=== PATIENT | female | born 1965 | race Caucasian/White ===

== ENCOUNTER → 2016-11-11 | Outpatient (CLI) | payer BC ==
[~2016-11-11] MED LIST: ALPRAZOLAM ER1 MG PO; CALCIUM 600 +1 EAC9 PO; CELEBREX 200 M200 M1 PO; COLACE100 MG PO; DESYREL300 MG PO; DIPHENHYDRAMINE25 M3; DIUREX WATER P1 EACH PO; EFFEXOR XR75 MG PO; ENOXAPARIN40 MG/0.1 SUBQ; FISH OIL 1,2001 EAC3 PO; FLONASE 0.05%50 MCG NASAL; GABAPENTIN 100100 MG PO; GELATIN PO; GLUCOSAMINE-CH1 EA40 PO; GNP HEADACHE P1 EACH PO; HYDROCODON-ACE1 EAC7 PO; HYDROXYCHLOROQ200 M1 PO; IBUPROFEN 800800 M1 PO; LASIX 40 MG TAB40 M2 PO; MELATONIN5 M2 PO; ONE-A-DAY WOMENS PO; PCCA GELATIN BAS1 GM PO; POTASSIUM20 PO; PROVERA10 MG PO; SPIRULINA500 MG PO; STOOL SOFTENER240 MG PO; TYLENOL PM; VITAMIN C + RO500 MG PO; VITAMIN E400 UNI7 PO; WATER PILL PO; ZYRTEC 10 MG TA10 M1 PO
== END ==
LOC: RAD 03:45
DX: Z12.31 Encounter for screening mammogram for malignant neoplasm of breast (principal)

== ENCOUNTER → 2016-11-21 | Outpatient (CLI) | payer BC | LOC: HYPER 07:59 | DX: L97.812 Non-pressure chronic ulcer of other part of right lower leg with fat layer exposed (principal); E66.01 Morbid (severe) obesity due to excess calories; M32.9 Systemic lupus erythematosus, unspecified; F17.210 Nicotine dependence, cigarettes, uncomplicated; Z85.828 Personal history of other malignant neoplasm of skin; Z96.641 Presence of right artificial hip joint; Z96.652 Presence of left artificial knee joint; Z72.89 Other problems related to lifestyle ==

== ENCOUNTER → 2017-06-12 | Outpatient (CLI) | payer BC | LOC: ULTRA 09:12 | DX: K82.8 Other specified diseases of gallbladder (principal) ==

== ENCOUNTER → 2017-06-23 | Outpatient (CLI) | payer BC ==
[~2017-06-23] MED LIST changes: +PROBIOTIC1 EAC5 PO; +RESTORIL30 MG PO; +VITAMIN D1000 UNIT PO
== END ==
LOC: NUC 08:05
DX: R10.11 Right upper quadrant pain (principal); R11.0 Nausea; R93.2 Abnormal findings on diagnostic imaging of liver and biliary tract

== ENCOUNTER → 2017-07-08 | Outpatient (CLI) | payer BC | LOC: HYPER 07:03 | DX: I87.2 Venous insufficiency (chronic) (peripheral) (principal); L97.821 Non-pressure chronic ulcer of other part of left lower leg limited to breakdown of skin; M32.9 Systemic lupus erythematosus, unspecified; E66.01 Morbid (severe) obesity due to excess calories; F17.200 Nicotine dependence, unspecified, uncomplicated; Z86.19 Personal history of other infectious and parasitic diseases; Z68.43 Body mass index [BMI] 50.0-59.9, adult; Z85.828 Personal history of other malignant neoplasm of skin; Z96.641 Presence of right artificial hip joint; Z96.652 Presence of left artificial knee joint; Z72.89 Other problems related to lifestyle ==

== ENCOUNTER → 2017-07-15 | Outpatient (CLI) | payer BC ==
[~2017-07-15] VITALS: Ht 170.2 cm; Wt 172.8 kg
--- NOTE | ~2017-07-15 | S ---
[facility] [address] [place] [address] SURGICAL PATH RPT PROCEDURE Name: BRANDON SINGH Room #: REG [facility]#: [id number] Admission: 07/15/17 Date of : 65 Discharge: Report #: [id number] Path Case #: [id number] PATHOLOGY REPORT COLLECTION DATE: 07/15/2017 RECEIVED DATE: 07/15/2017 SUBMITTING PHYS: Dr. Stefan Gutierrez OTHER PHYS: Dr. Shea Jackson SPECIMEN(S) RECEIVED: A.Duodenal bx B.Gastric bx C.Random colon bx * * * * * * * * * * * * FINAL DIAGNOSIS: A. Small bowel mucosa, duodenal, endoscopic biopsy: - Mild active peptic duodenitis (focal fundic-type metaplasia present). - Negative for dysplasia or malignancy. - Negative for villous blunting or increase in intraepithelial lymphocytosis. B. Gastric mucosa, gastric, endoscopic biopsy: - Two fragments showing mild reactive gastropathy. - Negative for intestinal metaplasia or atrophy. - Negative for Helicobacter pylori. C. Large intestine, random colon, endoscopic biopsy: - Nonspecific changes. - Negative for active colitis. - Negative for dysplasia or malignancy. (IUV:pit; 07/16/2017) COMMENT: Examination shows rare apoptotic bodies as well as occasional to rare eosinophils within the surface epithelium. The crypts are present at regular intervals. There is no evidence of lamina propria fibrosis. The lamina propria cellularity is mixed, and comprised of lymphocytes, plasma cells as well as eosinophils. There are no architectural abnormalities, granulomata, viral inclusions, or parasitic organisms present. There is no active cryptitis identified. There is no increase in intraepithelial lymphocytosis or thickening of collagen layer identified. Overall findings are nonspecific, and may be related to bowel preparation or reaction to medication induced drug injury. There is no dysplasia or malignancy present. Clinical correlation is suggested. (IUV:pit; 07/16/2017) [address] [address] SURGICAL PATH RPT PROCEDURE Name: SAMANTHABRANDON Room #: REG [facility] Antoni#: [id number] Admission: 07/15/17 Date of : 65 Discharge: Report #: [id number] Path Case #: [id number] PATHOLOGIST: Angy Beal M.D. REPORT ELECTRONICALLY SIGNED BY: Angy Beal M.D. DATE/TIME: 07/16/2017 12:34 * * * * * * * * * * * * GROSS PATHOLOGY: A. Received in formalin labeled "Brandon Singh, duodenal BX," and additionally labeled on the requisition as "r/o sprue," are 3 segments of garcia soft tissue measuring 1.1 x 0.3 x 0.3 cm in aggregate dimensions and ranging from 0.3 to 0.4 cm in maximum dimension. The specimen is submitted entirely in cassette A1. B. Received in formalin labeled "Brandon Singh, gastric BX," and additionally labeled on the requisition as "r/o gastritis," are 3 segments of garcia soft tissue measuring 0.9 x 0.3 x 0.3 cm in aggregate dimensions and ranging from 0.3 to 0.3 cm in maximum dimension. The specimen is submitted entirely in cassette B1. C. Received in formalin labeled "Brandon Singh, random colon BX," and additionally labeled on the requisition as "r/o microscopic colitis," are 5 segments of garcia soft tissue measuring 0.9 x 0.6 x 0.3 cm in aggregate dimensions and ranging from 0.2 to 0.4 cm in maximum dimension. The specimen is submitted entirely in cassette C1. (TSD; 07/15/2017) CLINICAL HISTORY: Pre-OP DX: Screening, nausea Post -OP DX: Esophagitis, gastritis, diverticulosis INITIAL CPT CODE(S): A; 69891 B; 55458, 82354 C; 55152 Professional services performed by [employer] at [facility] [address], [place] [address] Technical services performed by [employer] at [address] [place] [address], [address], [place] [address]. [facility] [address] [place] [address] PHONE: [phone] DIRECTOR: Suman Love M.D. * * * END OF REPORT * * *
--- NOTE | ~2017-07-15 | P ---
[facility] [address] [address] PROCEDURE REPORT Name: BRANDON SINGH Room #: REG [facility]#: [id number] Admission: 07/15/17 Attend Phys: Stefan Bateman Discharge: Date of : 65 Report #: [id number] THIS REPORT FOR: //name// CC: Stefan Jackson DATE OF SERVICE: 07/15/2017 PROCEDURE PERFORMED: Colonoscopy with biopsies. HISTORY OF PRESENT ILLNESS: This is a 51-year-old female who presents today for screening colonoscopy. No previous history of colonoscopy. She does have a family history of colon cancer in a grandfather. DESCRIPTION OF PROCEDURE: The risks and benefits of the procedure were explained to the patient, those risks including but not limited to bleeding, perforation, the risk of sedation. She understood these risks and gave informed consent. Sedation was given using propofol per anesthesia. Next, a digital rectal exam was initially performed, which was normal. Next, using a standard Fujinon colonoscope, the scope was placed in the patient's anus and advanced under direct vision to the cecum. The overall prep was excellent. The cecum and ileocecal valve were normal in appearance. Ascending, transverse, descending colon were normal. Multiple diverticula were noted in the sigmoid colon, no evidence of inflammation. The patient did report history of loose stools at times; therefore, biopsies were obtained to rule out microscopic colitis. The rectal mucosa was normal. On retroflexion, no abnormalities were noted. The scope was then withdrawn and the procedure terminated. The patient tolerated the procedure well. IMPRESSION: 1. Sigmoid diverticulosis. 2. Otherwise, normal colonoscopy. RECOMMENDATIONS: 1. Await biopsy results. 2. Repeat colonoscopy in 5 years due to family history. Thank you for allowing me to participate in her care. <ELECTRONICALLY SIGNED> By: Stefan Gutierrez MD 07/15/17 1005 0901 0936 Stefan Gutierrez MD /nt
--- NOTE | ~2017-07-15 | P ---
[facility] [address] [address] [place] [address] PROCEDURE REPORT Name: BRANDON SINGH Room #: REG [facility]#: [id number] Admission: 07/15/17 Attend Phys: Stefan Bateman Discharge: Date of : 65 Report #: [id number] THIS REPORT FOR: //name// CC: Stefan Jakcson MD DATE OF SERVICE: 07/15/2017 PROCEDURE PERFORMED: Upper endoscopy with biopsies. HISTORY OF PRESENT ILLNESS: The patient is a 51-year-old female with a history of intermittent nausea. She underwent an ultrasound and PIPIDA, they were apparently negative. She also presents today for a screening colonoscopy. She does take ibuprofen on a regular basis. She has a history of lupus, plan is for EGD and colonoscopy today. PROCEDURE: The risks and benefits of the procedure were explained to the patient, those risks including, but not limited to bleeding, perforation, and the risk of sedation. She understood these risks and gave informed consent. Sedation was given using propofol per anesthesia. Next, using a standard [employer] upper endoscope, the scope was placed in the patient's mouth and advanced under direct vision through the esophagus, stomach and into the second portion of the duodenum. The upper mid esophagus was normal in appearance. In the distal esophagus, grade A erosive esophagitis was noted. In the stomach, there was a mild diffuse gastritis in the antrum. Several erosions were noted in this area. On retroflexion, several linear ulcerations were noted, small. No active bleeding. Biopsies were obtained to rule out H. pylori. The pylorus was normal and patent. The duodenal bulb, first and second portion were all normal. Biopsies were obtained to rule out the possibility of celiac sprue. The scope was then withdrawn and the procedure terminated. The patient tolerated the procedure well. IMPRESSION: 1. Grade A erosive esophagitis. 2. Gastritis with several gastric erosions and a few small linear ulcerations. 3. Otherwise, normal upper endoscopy. RECOMMENDATIONS: 1. Await biopsy results. 2. Recommend daily PPI. [facility] [address] [place] [address] PROCEDURE REPORT Name: BRANDON SINGH Room #: REG VITAL[facility] Corrales#: [id number] Admission: 07/15/17 Attend Phys: Stefan Bateman Discharge: Date of : 65 Report #: [id number] Thank you for allowing me to participate in her care. <ELECTRONICALLY SIGNED> By: Stefan Gutierrez MD 07/17/17 0812 09 1009 Stefan Gutierrez MD /nt
== END | disposition home or self-care (01) ==
LOC: GI 07:31
DX: Z12.11 Encounter for screening for malignant neoplasm of colon (principal); K29.80 Duodenitis without bleeding; K57.30 Diverticulosis of large intestine without perforation or abscess without bleeding; K22.10 Ulcer of esophagus without bleeding; F32.89 Other specified depressive episodes; F41.8 Other specified anxiety disorders; F17.210 Nicotine dependence, cigarettes, uncomplicated; Z80.0 Family history of malignant neoplasm of digestive organs; Z85.828 Personal history of other malignant neoplasm of skin; Z98.890 Other specified postprocedural states; Z96.641 Presence of right artificial hip joint; Z96.652 Presence of left artificial knee joint; Z88.1 Allergy status to other antibiotic agents; Z91.040 Latex allergy status
CPT/HCPCS: 62110; 62900

== ENCOUNTER → 2017-07-27 | Outpatient (CLI) | payer BC | LOC: HYPER 06:45 | DX: I87.2 Venous insufficiency (chronic) (peripheral) (principal); L97.821 Non-pressure chronic ulcer of other part of left lower leg limited to breakdown of skin; M32.9 Systemic lupus erythematosus, unspecified; E66.01 Morbid (severe) obesity due to excess calories; F17.200 Nicotine dependence, unspecified, uncomplicated; Z86.19 Personal history of other infectious and parasitic diseases; Z68.43 Body mass index [BMI] 50.0-59.9, adult; Z85.828 Personal history of other malignant neoplasm of skin; Z96.641 Presence of right artificial hip joint; Z96.652 Presence of left artificial knee joint; Z72.89 Other problems related to lifestyle ==

== ENCOUNTER → 2017-11-11 | Outpatient (CLI) | payer BC ==
[~2017-11-11] MED LIST changes: +ANTRONEX PO; +ASPIR 8181 MG PO; +AZATHIOPRINE50 MG PO; +CARDIZEM CD120 MG PO; +CLOBETASOL PROP50 G1 TOP; +FISH OIL 1,2001 EAC4 PO; +GLUCOSAMINE HC500 MG PO; +IBU800 MG PO; +IRON325 PO; +NASACORT10.8 ML NASAL; +OMEPRAZOLE 20 M20 M1 PO; +PRADAXA150 MG PO; +PROBIOTIC1 EAC1 PO; +VITAMIN E400 UNIT PO; +ZYRTEC10 M5 PO
== END ==
LOC: RAD 01:42
DX: Z12.31 Encounter for screening mammogram for malignant neoplasm of breast (principal)

== ENCOUNTER 2017-11-22 13:36 | Inpatient (IN) | payer BC ==
[~2017-11-22] VITALS: Ht 170.2 cm; Wt 170.1 kg
--- NOTE | ~2017-11-22 | 2DMMODE ---
[facility] [place] [address] 2 D/M-MODE ECHOCARDIOGRAM Name: BRANDON SINGH Room #: 210-P [facility] IN .R.#: [id number] Admission: 11/22/17 Attend Phys: Miquel Simmons, Discharge: Date of : 65 Date of Service: 11/23/17 1002 Report #: [id number] THIS REPORT FOR: //name// APPROVED REPORT Study performed: 11/23/2017 08:55:46 EXAM: Comprehensive 2D, Doppler, and color-flow Echocardiogram Patient Location: Bedside Room #: 210 Status: routine BSA: 2.67 HR: 92 bpm BP: 147/65 mmHg Rhythm: Atrial Fibrillation Other Information Study Quality: Fair Technically limited study due to morbid obesity. Indications Afib with RVR. Echo Enhancing Agent Indication: Endocardial border delineation Agent(s) / Amount(s) Used: Optison 4 cc 2D Dimensions LVEF(%): 55.18 (>50%) IVSd: 12.11 (7-11mm) LVOT Diam: 21.81 (18-24mm) LVDd: 44.30 mm PWd: 11.66 (7-11mm) Ascending Ao: 35.71 (22-36mm) LVDs: 31.66 (25-40mm) Aortic Root: 33.61 mm Rousseau's LVEF: 55.18 % Volumes Left Atrial Volume (Systole) Single Plane 4CH: 76.50 mL Single Plane 2CH: 93.09 mL LA ESV Index: 35.00 mL/m2 Aortic Valve AoV Peak Guy.: 1.26 m/s AO Peak Gr.: 6.51 mmHg LVOT Max P.75 mmHg LVOT Max V: 0.82 m/s [facility] [place] [address] 2 D/M-MODE ECHOCARDIOGRAM Name: SAMANTHABRANDON Room #: 210-[facility] IN ..#: [id number] Admission: 11/22/17 Attend Phys: Miquel Simmons, Discharge: Date of : 65 Date of Service: 11/23/17 1002 Report #: [id number] ELIZABETH Vmax: 2.43 cm2 Mitral Valve MV Decel. Time: 206.86 ms MV E Max Guy.: 0.88 m/s Pulmonary Valve PV Peak Guy.: 0.80 m/s PV Peak Gr.: 2.62 mmHg Tricuspid Valve RAP Estimate: 5.00 mmHg Left Ventricle The left ventricle is normal size. There is normal LV segmental wall motion. Mild concentric left ventricular hypertrophy. Left ventricular systolic function is normal. LVEF is 55-60%. This study is not technically sufficient to allow evaluation of the LV diastolic function due to atrial fibrillation. Right Ventricle Right ventricle is not well visualized but appears grossly normal. Atria Left atrium is mildly dilated. The right atrium size is normal. Aortic Valve The aortic valve is normal in structure. No aortic regurgitation is present. There is no aortic valvular stenosis. Mitral Valve The mitral valve is normal in structure. Trace mitral regurgitation. No evidence of mitral valve stenosis. Tricuspid Valve Tricuspid valve is not well visualized. Unable to assess PA pressure. Pulmonic Valve Pulmonic valve is not well visualized. Trace pulmonic regurgitation. Great Vessels The aortic root is normal in size. The ascending aorta is normal in size. IVC is normal in size and collapses >50% with [facility] [place] [address] [address] 2 D/M-MODE ECHOCARDIOGRAM Name: BRANDON SINGH Room #: 210-P [facility] IN M.R.#: [id number] Admission: 11/22/17 Attend Phys: Miquel Simmons, Discharge: Date of : 65 Date of Service: 11/23/17 1002 Report #: [id number] inspiration. Pericardium There is no pericardial effusion. <Conclusion> The left ventricle is normal size. LVEF is 55-60%. Right ventricle is not well visualized but appears grossly normal. The aortic valve is normal in structure. The mitral valve is normal in structure. Trace mitral regurgitation. Pulmonic valve is not well visualized. The aortic root is normal in size. There is no pericardial effusion. <ELECTRONICALLY SIGNED> By: Santino Coronado MD 11/23/17 1002 1002 1002 Santino Coronado MD /INF
--- NOTE | ~2017-11-22 | EKG ---
[address] [place] [address] ELECTROCARDIOGRAM REPORT Name: BRANDON SINGH [id number] Admission: Attend Phys: Discharge: Date of : 65 Report #: [id number] THIS REPORT FOR: //name// [facility] ED Test Date: 2017-11-22 Test Time: 13:40:04 Pat Name: BRANDON SINGH Department: Room: Gender: F Telephone Order Clerk Room Service: [facility] : 1965 Requested By: Geovanni Meng Order Number: [id number] MD: Jonnathan Dsouza Measurements Intervals [place] Rate: 136 P: IA: QRS: 15 QRSD: 102 T: 56 QT: 306 QTc: 461 Interpretive Statements Atrial fibrillation Compared to ECG 06/14/2015 20:09:42 Sinus rhythm no longer present Electronically Signed On 11-22-2017 13:54:50 EXPEDITER by Jonnathan Dsouza [email or web address] <ELECTRONICALLY SIGNED> By: Jonnathan Dsouza MD, [facility] 11/22/17 1354 1340 1340 Jonnathan Dsouza MD, FACC /EPI
[~2017-11-22 13:36] MED LIST changes: -ANTRONEX PO; -ASPIR 8181 MG PO; -AZATHIOPRINE50 MG PO; -CARDIZEM CD120 MG PO; -CLOBETASOL PROP50 G1 TOP; -FISH OIL 1,2001 EAC4 PO; -GLUCOSAMINE HC500 MG PO; -IBU800 MG PO; -IRON325 PO; -NASACORT10.8 ML NASAL; -OMEPRAZOLE 20 M20 M1 PO; -PRADAXA150 MG PO; -PROBIOTIC1 EAC1 PO; -VITAMIN E400 UNIT PO; -ZYRTEC10 M5 PO
[2017-11-22 13:52] VITALS: BP 158/104
[2017-11-22 14:22] LABS: HEMATOCRIT 39.9 % (37.0-47.0); HEMOGLOBIN 13.1 gm/dL (12.0-15.0); MCH 29.1 pg (26.0-34.0); MCHC 32.9 g/dL (28.0-37.0); MCV 88.3 fL (80.0-100.0); RBC 4.51 mil/uL (4.20-5.00); RDW 14.3 % (10.5-14.5); WBC 4.8 thou/uL (4.0-11.0)
[2017-11-22 14:32] LABS: ANION GAP 8 mmol/L (7-16); BUN 13 mg/dL (7-18); CALCIUM 9.2 mg/dL (8.5-10.1); CHLORIDE 104 mmol/L (98-107); CO2 30 mmol/L (21-32); CREATININE 0.6 mg/dL (0.6-1.0); GLUCOSE 104 mg/dL (74-106); SODIUM 142 mmol/L (136-145)
[2017-11-22 14:41] LABS: MAGNESIUM 1.9 mg/dL (1.8-2.4); TROPONIN-I < 0.04 ng/mL (<0.06)
[2017-11-22 15:29] VITALS: BP 140/67
[2017-11-22 15:34] LABS: CHOLESTEROL 205 mg/dL (<200); HDL CHOLESTEROL 47 mg/dL (>40); LDL CHOLESTEROL 123 mg/dL (<100); PHOSPHORUS 4.2 mg/dL (2.5-4.9); TC:HDL 4.4 Ratio (Not establshd); TRIGLYCERIDE 179 mg/dL (<150); VLDL 36 mg/dL (<40)
[2017-11-22 16:14] VITALS: BP 155/67
[2017-11-22 16:20] VITALS: BP 143/69
[2017-11-22] MEDS ORDERED: NASACORT10.8 ML NASAL (16:55)
[2017-11-22 19:51] VITALS: BP 154/82
[2017-11-23 00:20] VITALS: BP 144/22
[2017-11-23 03:25] LABS: HEMOGLOBIN 12.1 gm/dL (12.0-15.0); MCH 29.5 pg (26.0-34.0); MCHC 33.6 g/dL (28.0-37.0); MCV 87.9 fL (80.0-100.0); PLATELET COUNT 245 thou/uL (150-400); RDW 14.3 % (10.5-14.5)
[2017-11-23 03:40] LABS: CALCIUM 8.5 mg/dL (8.5-10.1); CREATININE 0.6 mg/dL (0.6-1.0); POTASSIUM 3.7 mmol/L (3.5-5.1)
[2017-11-23 04:16] VITALS: BP 147/65
[2017-11-23 05:24] LABS: ABSOLUTE NEUTROPHILS 2.4 thou/uL (1.4-8.2); ATYPICAL LYMPHS 2 %
[2017-11-23 08:00] VITALS: BP 143/67
[2017-11-23 12:00] VITALS: BP 132/68
[2017-11-23 13:16] VITALS: BP 132/68
[2017-11-23] MEDS ORDERED: PRADAXA150 MG PO (14:29)
[2017-11-23] MEDS ORDERED: CARDIZEM CD120 MG PO (14:29)
== END 2017-11-23 14:58 | disposition home or self-care (01) | DRG 309 ==
LOC: ER 13:36 → EROBS 14:47 → 2N 14:47 → ENTRNSPT 11-23 14:47 → EDTRNSPTSTS 11-23 14:50 → 2N 11-23 14:58
PROVIDERS: Emergency Medicine; Family Medicine
DX: I48.91 Unspecified atrial fibrillation (principal); Z68.43 Body mass index [BMI] 50.0-59.9, adult; Z96.641 Presence of right artificial hip joint; F41.8 Other specified anxiety disorders; Z96.652 Presence of left artificial knee joint; H66.90 Otitis media, unspecified, unspecified ear; F17.210 Nicotine dependence, cigarettes, uncomplicated; M32.9 Systemic lupus erythematosus, unspecified; E66.9 Obesity, unspecified; G47.33 Obstructive sleep apnea (adult) (pediatric); Z88.1 Allergy status to other antibiotic agents; Z91.040 Latex allergy status; Z79.899 Other long term (current) drug therapy
CPT/HCPCS: 10194

== ENCOUNTER → 2017-12-25 | Outpatient (CLI) | payer BC ==
[~2017-12-25] MED LIST changes: +ANTRONEX PO; +ASPIR 8181 MG PO; +AZATHIOPRINE50 MG PO; +CARDIZEM CD120 MG PO; +CLOBETASOL PROP50 G1 TOP; +FISH OIL 1,2001 EAC4 PO; +GLUCOSAMINE HC500 MG PO; +IBU800 MG PO; +IRON325 PO; +NASACORT10.8 ML NASAL; +OMEPRAZOLE 20 M20 M1 PO; +PRADAXA150 MG PO; +PROBIOTIC1 EAC1 PO; +VITAMIN E400 UNIT PO; +ZYRTEC10 M5 PO
== END ==
LOC: SLEEPLAB 13:50
DX: G47.33 Obstructive sleep apnea (adult) (pediatric) (principal)

== ENCOUNTER 2018-04-13 14:01 | Inpatient (IN) | payer BC ==
[~2018-04-13] VITALS: Ht 170.2 cm; Wt 174.2 kg
[~2018-04-13 14:01] MED LIST changes: -ANTRONEX PO; -ASPIR 8181 MG PO; -AZATHIOPRINE50 MG PO; -CLOBETASOL PROP50 G1 TOP; -FISH OIL 1,2001 EAC4 PO; -GLUCOSAMINE HC500 MG PO; -IBU800 MG PO; -IRON325 PO; -OMEPRAZOLE 20 M20 M1 PO; -PROBIOTIC1 EAC1 PO; -VITAMIN E400 UNIT PO; -ZYRTEC10 M5 PO
[2018-04-13 14:04] VITALS: BP 176/90
[2018-04-13 14:44] LABS: ABSOLUTE NEUTROPHILS 7.2 thou/uL (1.4-8.2); BASOPHILS 0.3 % (0.0-2.0); EOSINOPHILS 2.6 % (0.0-3.0); HEMATOCRIT 35.8 % (37.0-47.0); HEMOGLOBIN 11.9 gm/dL (12.0-15.0); LYMPHOCYTES 7.1 % (24.0-44.0); MCH 29.3 pg (26.0-34.0); MCHC 33.1 g/dL (28.0-37.0); MCV 88.4 fL (80.0-100.0); MONOCYTES 6.2 % (1.0-8.0); PLATELET COUNT 207 thou/uL (150-400); POLYS 83.8 % (36.0-66.0); RBC 4.05 mil/uL (4.20-5.00); RDW 14.4 % (10.5-14.5); WBC 8.5 thou/uL (4.0-11.0)
[2018-04-13] MEDS ORDERED: ASPIR 8181 MG PO (14:47)
[2018-04-13] MEDS ORDERED: IBU800 MG PO (14:48)
[2018-04-13] MEDS ORDERED: OMEPRAZOLE 20 M20 M1 PO (14:49)
[2018-04-13] MEDS ORDERED: CLOBETASOL PROP50 G1 TOP (14:50)
[2018-04-13] MEDS ORDERED: VITAMIN E400 UNIT PO (14:54)
[2018-04-13] MEDS ORDERED: AZATHIOPRINE50 MG PO (14:57)
[2018-04-13] MEDS ORDERED: GLUCOSAMINE HC500 MG PO (14:59)
[2018-04-13] MEDS ORDERED: FISH OIL 1,2001 EAC4 PO (14:59)
[2018-04-13] MEDS ORDERED: SPIRULINA500 MG PO (15:00)
[2018-04-13] MEDS ORDERED: PROBIOTIC1 EAC1 PO (15:01)
[2018-04-13] MEDS ORDERED: ZYRTEC10 M5 PO (15:01)
[2018-04-13] MEDS ORDERED: ANTRONEX PO (15:01)
[2018-04-13 15:06] LABS: CALCIUM 8.6 mg/dL (8.5-10.1); CREATININE 0.6 mg/dL (0.6-1.0); POTASSIUM 3.9 mmol/L (3.5-5.1)
[2018-04-13 15:12] LABS: ALBUMIN 3.3 g/dL (3.4-5.0); TOTAL BILIRUBIN 0.4 mg/dL (<0.1-1.0); TOTAL PROTEIN 7.3 g/dL (6.4-8.2)
[2018-04-13 15:55] VITALS: BP 176/90
[2018-04-13 16:12] VITALS: BP 162/93
[2018-04-13 16:31] VITALS: BP 176/72
[2018-04-13 20:00] VITALS: BP 132/58
[2018-04-14] VITALS: BP 106/54
[2018-04-14 04:00] VITALS: BP 129/57
[2018-04-14 05:56] LABS: HEMATOCRIT 32.6 % (37.0-47.0); HEMOGLOBIN 10.9 gm/dL (12.0-15.0); MCH 29.6 pg (26.0-34.0); MCHC 33.4 g/dL (28.0-37.0); MCV 88.7 fL (80.0-100.0); RBC 3.67 mil/uL (4.20-5.00); RDW 14.5 % (10.5-14.5); WBC 7.1 thou/uL (4.0-11.0)
[2018-04-14 06:07] LABS: CALCIUM 8.4 mg/dL (8.5-10.1); CREATININE 0.6 mg/dL (0.6-1.0); POTASSIUM 3.6 mmol/L (3.5-5.1)
[2018-04-14 06:13] LABS: CHOLESTEROL 158 mg/dL (<200); HDL CHOLESTEROL 39 mg/dL (>40); LDL CHOLESTEROL 100 mg/dL (<100); TC:HDL 4.1 Ratio (Not establshd); TRIGLYCERIDE 95 mg/dL (<150); VLDL 19 mg/dL (<40)
[2018-04-14 06:14] LABS: SERUM ASSESSMENT Clear
[2018-04-14 10:04] VITALS: BP 153/77
[2018-04-14 21:20] VITALS: BP 143/62
[2018-04-15 08:03] LABS: % SATURATION 11 % (20-39); IRON 30 ug/dL (50-170); TIBC 266 ug/dL (250-450)
[2018-04-15 08:15] VITALS: BP 141/62
[2018-04-15 20:21] VITALS: BP 144/66
[2018-04-16 08:17] VITALS: BP 142/68
[2018-04-16 09:01] LABS: HEMOGLOBIN 11.1 gm/dL (12.0-15.0); MCH 29.5 pg (26.0-34.0); MCHC 33.7 g/dL (28.0-37.0); MCV 87.4 fL (80.0-100.0); RBC 3.78 mil/uL (4.20-5.00); RDW 14.4 % (10.5-14.5); WBC 5.1 thou/uL (4.0-11.0)
[2018-04-16 09:12] LABS: CALCIUM 9.1 mg/dL (8.5-10.1); CREATININE 0.5 mg/dL (0.6-1.0); POTASSIUM 3.8 mmol/L (3.5-5.1)
[2018-04-16] MEDS ORDERED: IRON325 PO ×3 (09:48→09:55)
[2018-04-16 11:29] VITALS: BP 142/68
== END 2018-04-16 12:56 | disposition home or self-care (01) | DRG 438 ==
LOC: ER 14:01 → EROBS 15:43 → 4N 15:43 → SICU 04-14 10:29 → ENTRNSPT 04-16 12:49 → EDTRNSPTSTS 04-16 12:50 → SICU 04-16 12:56
PROVIDERS: Emergency Medicine; Hospitalist; Internal Medicine Gastroenterology
DX: K85.90 Acute pancreatitis without necrosis or infection, unspecified (principal); E43 Unspecified severe protein-calorie malnutrition; K82.1 Hydrops of gallbladder; Z68.44 Body mass index [BMI] 60.0-69.9, adult; Z96.641 Presence of right artificial hip joint; F32.9 Major depressive disorder, single episode, unspecified; F41.9 Anxiety disorder, unspecified; Z96.652 Presence of left artificial knee joint; I10 Essential (primary) hypertension; E78.5 Hyperlipidemia, unspecified; F17.210 Nicotine dependence, cigarettes, uncomplicated; M32.9 Systemic lupus erythematosus, unspecified; E66.9 Obesity, unspecified; K57.90 Diverticulosis of intestine, part unspecified, without perforation or abscess without bleeding; Z80.0 Family history of malignant neoplasm of digestive organs; Z88.1 Allergy status to other antibiotic agents; Z91.040 Latex allergy status; Z79.82 Long term (current) use of aspirin; Z79.899 Other long term (current) drug therapy
CPT/HCPCS: 10091; 15002

== ENCOUNTER → 2018-10-11 | Outpatient (CLI) | payer BC ==
[~2018-10-11] MED LIST changes: +ANTRONEX PO; +ASPIR 8181 MG PO; +AZATHIOPRINE50 MG PO; +CLOBETASOL PROP50 G1 TOP; +FISH OIL 1,2001 EAC4 PO; +GLUCOSAMINE HC500 MG PO; +IBU800 MG PO; +IRON325 PO; +OMEPRAZOLE 20 M20 M1 PO; +PROBIOTIC1 EAC1 PO; +VITAMIN E400 UNIT PO; +ZYRTEC10 M5 PO
== END ==
LOC: ULTRA 09:43
DX: M32.9 Systemic lupus erythematosus, unspecified (principal); I89.0 Lymphedema, not elsewhere classified; L53.9 Erythematous condition, unspecified

== ENCOUNTER → 2018-11-16 | Outpatient (CLI) | payer BC | LOC: RAD 01:07 | DX: Z12.31 Encounter for screening mammogram for malignant neoplasm of breast (principal) ==

== ENCOUNTER → 2019-11-21 | Outpatient (CLI) | payer BC, OTHER | LOC: BC 08:48 | DX: Z12.31 Encounter for screening mammogram for malignant neoplasm of breast (principal) ==

== ENCOUNTER → 2020-03-26 | Outpatient (CLI) | payer BC, OTHER ==
[~2020-03-26] MED LIST changes: +TOPROL XL25 MG PO; +WOMEN'S 50 PLU1 EAC1 PO
== END ==
LOC: SJCVCIMAG 08:06
PROVIDERS: ATTEND Internal Medicine
DX: I07.1 Rheumatic tricuspid insufficiency (principal); E78.5 Hyperlipidemia, unspecified; I48.0 Paroxysmal atrial fibrillation; E66.01 Morbid (severe) obesity due to excess calories; F17.210 Nicotine dependence, cigarettes, uncomplicated

== ENCOUNTER → 2020-04-25 | Outpatient (CLI) | payer BC, OTHER ==
[2020-04-25 10:32] LABS: HEMATOCRIT 38.1 % (37.0-47.0); HEMOGLOBIN 12.9 gm/dL (12.0-15.0); MCV 91.2 fL (80.0-100.0); RBC 4.18 mil/uL (4.20-5.00); RDW 13.9 % (10.5-14.5); WBC 5.8 thou/uL (4.0-11.0)
[2020-04-25 10:46] LABS: ALBUMIN 3.3 g/dL (3.4-5.0); CALCIUM 8.4 mg/dL (8.5-10.1); CREATININE 0.7 mg/dL (0.6-1.0); POTASSIUM 4.2 mmol/L (3.5-5.1); TOTAL BILIRUBIN 0.4 mg/dL (0.2-1.0); TOTAL PROTEIN 6.5 g/dL (6.4-8.2)
== END ==
LOC: CAT 08:57
PROVIDERS: ATTEND Internal Medicine Cardiovascular Disease
DX: I48.91 Unspecified atrial fibrillation (principal)

== ENCOUNTER 2020-04-30 06:47 | Outpatient (CLI) | payer BC, OTHER ==
[~2020-04-30] VITALS: Ht 170.2 cm; Wt 178.7 kg
[2020-04-30] VITALS (12 sets, daily range): BP systolic 110–154; BP diastolic 53–87
[~2020-04-30 06:47] MED LIST changes: -TOPROL XL25 MG PO; -WOMEN'S 50 PLU1 EAC1 PO
[2020-04-30] MEDS ORDERED: PRADAXA150 MG PO ×2 (07:42)
[2020-04-30] MEDS ORDERED: TOPROL XL25 MG PO ×2 (07:48)
[2020-04-30] MEDS ORDERED: WOMEN'S 50 PLU1 EAC1 PO ×2 (07:49)
[2020-04-30 08:11] LABS: HEMATOCRIT 37.2 % (37.0-47.0); HEMOGLOBIN 12.4 gm/dL (12.0-15.0); MCH 30.7 pg (26.0-34.0); MCHC 33.3 g/dL (28.0-37.0); MCV 92.1 fL (80.0-100.0); RBC 4.04 mil/uL (4.20-5.00); RDW 14.4 % (10.5-14.5); WBC 5.1 thou/uL (4.0-11.0)
[2020-04-30 08:25] LABS: CALCIUM 8.3 mg/dL (8.5-10.1); CREATININE 0.8 mg/dL (0.6-1.0); POTASSIUM 4.5 mmol/L (3.5-5.1)
[2020-04-30 08:30] LABS: TOTAL BILIRUBIN 0.4 mg/dL (0.2-1.0); TOTAL PROTEIN 6.8 g/dL (6.4-8.2)
[2020-04-30 09:16] LABS: APTT 31.3 Seconds (24.5-32.8); PROTIME 10.3 Seconds (9.3-11.4)
--- NOTE | 2020-04-30 18:54 | NUR ---
1530 PT ADMITTED TO CCU, ROOM 215. PT ALERT AND ORIENTED X4, DNEIES CHEST PAIN, NAUSEAN AND VOMITING. PT PLACED ON SPORT SHOE SPIKE ASSEMBLER, IN SINUS RHYTHM. PT IS ON ROOM AIR, LUNGS CLEAR, NO SIGNS OF DISTRESS NOTED. POST ABLATION SITE CHECKED FREQUENTLY, SITE CLEAN, DRY AND INTACT. SITE IS SOFT, NO HEMATOMA NOR BLEEDING NOTED. PULSES 2+ IN THE UPPER EXTREMITIES AND 1+ IN THE LOWER EXTREMITES. SCD'S PLACED ON PT. PT ORIENTED TO ROOM, FALL CONSENT SIGNED. ADMISSION AND ASSESSMENT COMPLETED. TUCKER CATHETER IN PLACE AND PATENT. WILL CONTINUE TO MONITOR.
--- NOTE | 2020-05-01 03:25 | NUR ---
ASSESSMENT DOCUMENTED.PT BEEN RESTING IN NO ACUTE DISTRESS.A/OX4.VSS.S/P AFIB/AFLUTTER ABLATION.RIGHT GROIN INTACT W/O ACTIVE BLEEDING OR HEMATOMA.SR ON MONITOR.CPAP ON WHILE SLEEPING OTHERWISE ON RA W/O RESP DISTRESS.PT DENIES PAIN OR ANY DISTRESS AT THIS TIME.POC IS TO DISCHARGE TO HOME TODAY.
[2020-05-01 04:07] VITALS: BP 137/81
[2020-05-01 08:00] VITALS: BP 121/74
[2020-05-01 10:30] VITALS: BP 1221/74
--- NOTE | 2020-05-01 12:08 | NUR ---
0800 PT. ASSESSMENT COMPLETED AT THIS TIME. SHE IS C/O PAIN ACROSS HER CHEST AREA THAT IS JUST "A GENERAL SORENESS THAT SHE IS MORE ACHY FEELING NOT CHEST PAIN". WILL MEDICATE FOR SUCH THIS AM. REVIWEING HER PLAN OF CARE AND DISCHARGE FOCUS FOR THE DAY. EKG SHOWS NSR AT THIS TIME.
--- NOTE | 2020-05-01 12:19 | NUR ---
MULTIPLE QUESTIONS CONCERNING MEDICATIONS PAGE OUT TO STAFF REGARDING METOPROLOL DOSAGE. REVIEWED ALL HER OTHER MEDICATIONS AND DISCHARGE LIST WHICH MATCH . HAS CPAP QUESTIONS WELL WILL REVIEW.
--- NOTE | 2020-05-01 13:57 | NUR ---
IV REMOVED, NO INFILTRATION AT SITE. RIGHT GROIN AREA IS C,D,I, NO HEMATOMA OBSERVED. AMINAH HIDALGO ROVERTO CALLED INTO HER PHARMACY FOR PICKUP. NSR ON MONITOR, NO ECTOPY OBSERVED. HER FATHER IS HERE FOR PICKUP AT ER. DENIES ANY PAIN OR CHEST PAIN AT THIS TIME OTHER THEN THE FEELING SHE HAD PRIOR THAT SHE HAD A PROCEDURE DONE PRIOR.
--- NOTE | 2020-05-08 15:59 | P ---
[facility] [address] [place] [address] PROCEDURE REPORT Name: BRANDON SINGH Room #: DEP [facility]#: [id number] Admission: 04/30/20 Attend Phys: Irineo Gaviria MD Discharge: 05/01/20 Date of : 65 Report #: [id number] THIS REPORT FOR: cc: Shea Jackson MD, Nora P. MD Couchonnal, Luis F. MD ~ CC: Irineo Jackson DATE OF SERVICE: 04/30/2020 PROCEDURE: AFib ablation. PREOPERATIVE DIAGNOSES: 1. Atrial fibrillation. 2. Flutter. POSTOPERATIVE DIAGNOSES: 1. Atrial fibrillation. 2. Flutter. HISTORY: The patient is a 54-year-old female with a history of obesity, BMI 60 as well as recurrent atrial fibrillation and atrial flutter, here for an ablation. She has an ejection fraction of 40%. PROCEDURES PERFORMED: 1. AFib ablation, CPT code 11801. 2. 3D mapping, CPT code 07261. 3. Intracardiac echo, CPT code 36959. 4. Second pathway ablation, CPT code 16733. ANESTHESIA: The patient underwent general anesthesia with no anesthesia related complications. DESCRIPTION OF PROCEDURE: The patient underwent informed consent. We discussed the details of the procedure including the risks, which included but not limited to bleeding, infection, vascular damage, cardiac perforation, stroke, MN as well as groin related complications, which I quoted her higher risk given her BMI of 60. She understood these risks and is willing to proceed. The patient was brought to EP laboratory in a fasting and sedated state, prepped and draped in a sterile fashion. I obtained access to the right femoral vein x 3 and this was straightforward. I placed 3 short sheaths using the modified Seldinger technique. Next under fluoroscopy, I placed a decapolar catheter easily in the coronary sinus, which showed that the patient was in atrial flutter with an atrial cycle length of 260 milliseconds in a proximal and distal [facility] [address] [place] [address] PROCEDURE REPORT Name: BRANDON SINGH Room #: DEP VITAL[facility] Corrales#: [id number] Admission: 04/30/20 Attend Phys: Irineo Gaviria MD Discharge: 05/01/20 Date of : 65 Report #: [id number] activation in a surface lead pattern suggested of typical atrial flutter. Next, an intracardiac ultrasound catheter was placed into the right atrium and a detailed 3D geometry of the left atrium was created. There was evidence of a large left common ostium and 2 right-sided pulmonary veins. She had a nice interatrial septum and I also took images of the cavotricuspid isthmus. These images were merged with the patient's CT scan and the patient was systemically heparinized and a transseptal was performed with an SL1 sheath and a Gerton needle. I was able to cross my wire into the left common ostium. I could not advance my SL1 sheath. I therefore exchanged for the cryo sheath and that was not advanced either. Therefore, I transitioned back to the SL1 sheath and I was able to now advance this into the left atrium and therefore I used a Submitnet PowerFlex 6 mm x 4 cm angioplasty balloon and I dilated the interatrial septum. After this, I was able to advance the SL1 sheath and then the cryo sheath into the left atrium. Next, I started by attempting to isolate the left common ostium. Given its large size, I first started by isolating the superior branch of the common ostium and then went for the inferior branch. The patient actually went into atrial fibrillation and then converted to sinus rhythm while I was attempting to isolate this. After I did several freezes and was trying to segment this vessel, it appeared the vein was still connected. I therefore went ahead and proceeded with isolation of the right-sided veins. I performed phrenic nerve pacing with the decapolar catheter placed at the subclavian vessel. The right superior pulmonary vein appeared to be essentially isolated prior to the procedure. I went ahead and performed a freeze for 110 seconds and the temps were -55 degrees, therefore, I came off. I then turned my attention to the right inferior pulmonary vein and I performed a single freeze of 210 seconds as this vein isolated within 60 seconds. Next, I went back up into the left atrium with the Lasso catheter and created the repeat voltage map and this showed that the right-sided veins were isolated and it showed that most of the common ostium was isolated except for the anterior roof region between the left atrial appendage and the left superior pulmonary vein. Therefore, I went back in with the cryo balloon and performed 2 freezes at this region and then I performed 2 additional freezes at the inferior aspect of the vein. I therefore went back in with my Lasso catheter and this was now isolated. In fact, there was wide circumferential ablation of the left common ostium at this point. As such, my transseptal sheath was pulled to the right atrium and the patient was prepped for atrial flutter ablation. Of note, before performing the AFib ablation, I did perform an activation map of the flutter while I was in the left atrium and the activation pattern was suggestive of a right-sided atrial flutter as well. The earliest activation was noted at the Brinda's bundle. Ablation of typical atrial flutter. Next, I placed my ICE catheter via the cryo sheath and then exchanged the 9-Japanese short sheath for a ramp sheath and placed a Biosense Payan SmartTouch ThermoCool ablation catheter at 6 o'clock along the cavotricuspid isthmus. At baseline, the transisthmus conduction time was 50 milliseconds. I then performed ablation at 40 lockett and performed a continuous drag lesion until I fell into the IVC. I went back up and re-interrogated my [facility] [address] [place] [address] PROCEDURE REPORT Name: BRANDON SINGH Room #: DEP [facility] Corrales#: [id number] Admission: 04/30/20 Attend Phys: Irineo Gaviria MD Discharge: 05/01/20 Date of : 65 Report #: [id number] ablation line and there were some small signals along the distal third of my line and I performed additional ablation here at 40 lockett. I therefore decided to perform testing. I performed differential pacing and the transisthmus conduction time was 190 milliseconds while pacing from CS 9-10 and measuring to the ablation catheter and while pacing from the ablation catheter measuring to the CS, the transisthmus conduction time was 180 milliseconds. Differential pacing was also consistent with bidirectional block. As such, the procedure was successful without complications. Using intracardiac ultrasound, I verified there was no pericardial effusion. The patient then received 100 of protamine and catheters and sheaths were pulled. Given her obesity, a [id number] suture was performed at the right groin. CONCLUSIONS: 1. Successful AFib ablation with wide circumferential ablation of the left common, the right superior and right inferior pulmonary veins. 2. Successful atrial flutter ablation with evidence of bidirectional block. <ELECTRONICALLY SIGNED> By: Irineo Gaviria MD 05/08/20 1559 1236 1411 Irineo Gaviria MD /nt
== END 2020-05-01 16:26 | disposition home or self-care (01) ==
LOC: CATH 06:47 → 2N 15:45 → CATH 15:48
PROVIDERS: ATTEND Internal Medicine Cardiovascular Disease
DX: I48.91 Unspecified atrial fibrillation (principal); I48.92 Unspecified atrial flutter; E66.09 Other obesity due to excess calories; Z68.44 Body mass index [BMI] 60.0-69.9, adult; I10 Essential (primary) hypertension; F32.9 Major depressive disorder, single episode, unspecified; F41.9 Anxiety disorder, unspecified; Z98.890 Other specified postprocedural states; Z79.899 Other long term (current) drug therapy; Z96.641 Presence of right artificial hip joint; Z96.652 Presence of left artificial knee joint; Z87.891 Personal history of nicotine dependence; Z85.828 Personal history of other malignant neoplasm of skin; Z79.82 Long term (current) use of aspirin; Z79.01 Long term (current) use of anticoagulants; Z91.040 Latex allergy status; Z82.49 Family history of ischemic heart disease and other diseases of the circulatory system; Z11.59 Encounter for screening for other viral diseases; Z88.8 Allergy status to other drugs, medicaments and biological substances
CPT/HCPCS: 10081; 62110; 62900; 70005

== ENCOUNTER → 2020-06-20 | Outpatient (CLI) | payer BC, OTHER ==
[~2020-06-20] MED LIST changes: +TOPROL XL25 MG PO; +WOMEN'S 50 PLU1 EAC1 PO
== END ==
LOC: LAB 08:51
PROVIDERS: ATTEND Family Medicine
DX: R05 Cough (principal)

== ENCOUNTER → 2020-07-27 | Outpatient (CLI) | payer BC, OTHER | LOC: ULTRA 10:35 | PROVIDERS: ATTEND Family Medicine | DX: I27.82 Chronic pulmonary embolism (principal); L53.9 Erythematous condition, unspecified; M79.605 Pain in left leg; M79.89 Other specified soft tissue disorders ==

== ENCOUNTER → 2020-08-07 | Outpatient (CLI) | payer BC, OTHER ==
--- NOTE | 2020-08-08 09:39 | LINQ ---
[facility] [place] [place] [address] LINQ PROCEDURE REPORT Name: BRANDON SINGH Room #: REG Charo Antoni#: [id number] Admission: 08/07/20 Attend Phys: Santino Coronado Discharge: Date of : 65 Report #: [id number] THIS REPORT FOR: cc: Shea Jackson MD, Nora P. MD Lammoglia, Francisco J. MD ~ THIS REPORT FOR: //name// APPROVED REPORT Study performed: 08/07/2020 14:30:50 Patient Status: Out-Patient Room #: Event Personnel: Santino Coronado MD Exam: Reveal LINQ Insertion Indications: Paraxysmal Atrial Fibrillation post Ablation The patient is a 54 year-old female with a history of symptomatic atrial fibrillation. Implanted Devices: Medtronic: Reveal LINQ; Model # LNQ11; SN: [id number] Procedure The patient underwent informed consent. We discussed the details of the procedure including the risks, which include, but not limited to bleeding, infection, vascular damage, cardiac perforation, and pneumothorax. After informed consent obtained the patietnt was brought to cardiac catheterization prep and hold. Left chest was prepped and draped in usual sterile fashion. Lidocaine was instilled and with sharp and dull dissection was utilized to develop a pocket. Utilizing the deployment tool the device was inserted. Subcutaneous tissue was closed with simpole interupted suture. Skin ws closed with 3-0 running subcuticular stitch Complications The patient tolerated the procedure well and there were no complications associated with the procedure. Conclusion 1. successful implantation of ILR [facility] [address] [place] [address] [employer] PROCEDURE REPORT Name: BRANDON SINGH Room #: REG [facility]#: [id number] Admission: 08/07/20 Attend Phys: Santino Elizabeth Discharge: Date of : 65 Report #: [id number] Recommendations 1. routine post implantation protocol <ELECTRONICALLY SIGNED> By: Santino Coronado MD 08/08/2039 8 Santino Coronado MD /INF
== END | disposition home or self-care (01) ==
LOC: CATH 09:25
PROVIDERS: ATTEND Internal Medicine
DX: I48.0 Paroxysmal atrial fibrillation (principal); Z98.890 Other specified postprocedural states; Z79.899 Other long term (current) drug therapy; Z79.01 Long term (current) use of anticoagulants; Z91.040 Latex allergy status; Z87.19 Personal history of other diseases of the digestive system; Z88.8 Allergy status to other drugs, medicaments and biological substances

== ENCOUNTER → 2020-11-22 | Outpatient (CLI) | payer BC, OTHER | LOC: BC 10:41 | PROVIDERS: ATTEND Family Medicine | DX: Z12.31 Encounter for screening mammogram for malignant neoplasm of breast (principal) ==

== ENCOUNTER → 2021-03-26 | Outpatient (CLI) | payer BC, OTHER | LOC: HYPER 09:08 | PROVIDERS: ATTEND Emergency Medicine | DX: T81.89XA Other complications of procedures, not elsewhere classified, initial encounter (principal); L97.812 Non-pressure chronic ulcer of other part of right lower leg with fat layer exposed; E66.01 Morbid (severe) obesity due to excess calories; G47.30 Sleep apnea, unspecified; I87.2 Venous insufficiency (chronic) (peripheral); M32.10 Systemic lupus erythematosus, organ or system involvement unspecified; F17.200 Nicotine dependence, unspecified, uncomplicated; Z68.44 Body mass index [BMI] 60.0-69.9, adult; Z96.643 Presence of artificial hip joint, bilateral; Z96.652 Presence of left artificial knee joint; Z85.828 Personal history of other malignant neoplasm of skin; Y92.238 Other place in hospital as the place of occurrence of the external cause; Y83.8 Other surgical procedures as the cause of abnormal reaction of the patient, or of later complication, without mention of misadventure at the time of the procedure ==

== ENCOUNTER → 2021-03-28 | Outpatient (CLI) | payer BC, OTHER | LOC: HYPER 07:53 | PROVIDERS: ATTEND Emergency Medicine | DX: T81.89XD Other complications of procedures, not elsewhere classified, subsequent encounter (principal); L97.812 Non-pressure chronic ulcer of other part of right lower leg with fat layer exposed; E66.01 Morbid (severe) obesity due to excess calories; I87.2 Venous insufficiency (chronic) (peripheral); G47.30 Sleep apnea, unspecified; M32.10 Systemic lupus erythematosus, organ or system involvement unspecified; F17.200 Nicotine dependence, unspecified, uncomplicated; Z96.641 Presence of right artificial hip joint; Z96.652 Presence of left artificial knee joint; Z68.44 Body mass index [BMI] 60.0-69.9, adult; Z85.828 Personal history of other malignant neoplasm of skin; Y83.8 Other surgical procedures as the cause of abnormal reaction of the patient, or of later complication, without mention of misadventure at the time of the procedure ==

== ENCOUNTER → 2021-04-02 | Outpatient (CLI) | payer BC, OTHER | LOC: HYPER 13:37 | PROVIDERS: ATTEND Emergency Medicine | DX: T81.89XD Other complications of procedures, not elsewhere classified, subsequent encounter (principal); L97.812 Non-pressure chronic ulcer of other part of right lower leg with fat layer exposed; L84 Corns and callosities; E66.01 Morbid (severe) obesity due to excess calories; G47.30 Sleep apnea, unspecified; I87.2 Venous insufficiency (chronic) (peripheral); M32.10 Systemic lupus erythematosus, organ or system involvement unspecified; F17.200 Nicotine dependence, unspecified, uncomplicated; Z68.44 Body mass index [BMI] 60.0-69.9, adult; Z96.641 Presence of right artificial hip joint; Z96.652 Presence of left artificial knee joint; Z85.828 Personal history of other malignant neoplasm of skin; Y83.8 Other surgical procedures as the cause of abnormal reaction of the patient, or of later complication, without mention of misadventure at the time of the procedure ==

== ENCOUNTER → 2021-04-17 | Outpatient (CLI) | payer BC, OTHER | LOC: HYPER 07:35 | PROVIDERS: ATTEND Emergency Medicine | DX: T81.89XD Other complications of procedures, not elsewhere classified, subsequent encounter (principal); L97.812 Non-pressure chronic ulcer of other part of right lower leg with fat layer exposed; L84 Corns and callosities; E66.01 Morbid (severe) obesity due to excess calories; G47.30 Sleep apnea, unspecified; I87.2 Venous insufficiency (chronic) (peripheral); M32.10 Systemic lupus erythematosus, organ or system involvement unspecified; F17.200 Nicotine dependence, unspecified, uncomplicated; Z68.44 Body mass index [BMI] 60.0-69.9, adult; Z96.641 Presence of right artificial hip joint; Z96.652 Presence of left artificial knee joint; Z85.828 Personal history of other malignant neoplasm of skin; Y83.8 Other surgical procedures as the cause of abnormal reaction of the patient, or of later complication, without mention of misadventure at the time of the procedure ==

== ENCOUNTER → 2021-05-01 | Outpatient (CLI) | payer BC, OTHER | LOC: HYPER 09:13 | PROVIDERS: ATTEND Emergency Medicine | DX: T81.89XD Other complications of procedures, not elsewhere classified, subsequent encounter (principal); L97.812 Non-pressure chronic ulcer of other part of right lower leg with fat layer exposed; L84 Corns and callosities; E66.01 Morbid (severe) obesity due to excess calories; G47.30 Sleep apnea, unspecified; I87.2 Venous insufficiency (chronic) (peripheral); M32.10 Systemic lupus erythematosus, organ or system involvement unspecified; F17.200 Nicotine dependence, unspecified, uncomplicated; Z68.44 Body mass index [BMI] 60.0-69.9, adult; Z96.641 Presence of right artificial hip joint; Z96.652 Presence of left artificial knee joint; Z85.828 Personal history of other malignant neoplasm of skin; Y83.8 Other surgical procedures as the cause of abnormal reaction of the patient, or of later complication, without mention of misadventure at the time of the procedure ==

== ENCOUNTER → 2021-05-16 | Outpatient (CLI) | payer BC, OTHER | LOC: HYPER 07:38 | PROVIDERS: ATTEND Emergency Medicine | DX: T81.89XD Other complications of procedures, not elsewhere classified, subsequent encounter (principal); L97.812 Non-pressure chronic ulcer of other part of right lower leg with fat layer exposed; L84 Corns and callosities; E66.01 Morbid (severe) obesity due to excess calories; G47.30 Sleep apnea, unspecified; I87.2 Venous insufficiency (chronic) (peripheral); M32.10 Systemic lupus erythematosus, organ or system involvement unspecified; F17.200 Nicotine dependence, unspecified, uncomplicated; Z68.44 Body mass index [BMI] 60.0-69.9, adult; Z96.641 Presence of right artificial hip joint; Z96.652 Presence of left artificial knee joint; Z85.828 Personal history of other malignant neoplasm of skin; Y83.8 Other surgical procedures as the cause of abnormal reaction of the patient, or of later complication, without mention of misadventure at the time of the procedure ==

== ENCOUNTER → 2021-06-26 | Outpatient (CLI) | payer BC, OTHER | LOC: HYPER 07:32 | PROVIDERS: ATTEND Emergency Medicine | DX: T81.89XD Other complications of procedures, not elsewhere classified, subsequent encounter (principal); L97.812 Non-pressure chronic ulcer of other part of right lower leg with fat layer exposed; L84 Corns and callosities; E66.01 Morbid (severe) obesity due to excess calories; G47.30 Sleep apnea, unspecified; I87.2 Venous insufficiency (chronic) (peripheral); M32.10 Systemic lupus erythematosus, organ or system involvement unspecified; F17.200 Nicotine dependence, unspecified, uncomplicated; Z68.44 Body mass index [BMI] 60.0-69.9, adult; Z96.641 Presence of right artificial hip joint; Z96.652 Presence of left artificial knee joint; Z85.828 Personal history of other malignant neoplasm of skin; Y83.8 Other surgical procedures as the cause of abnormal reaction of the patient, or of later complication, without mention of misadventure at the time of the procedure ==

== ENCOUNTER → 2021-07-12 | Outpatient (CLI) | payer BC, OTHER | LOC: HYPER 07:30 | PROVIDERS: ATTEND Emergency Medicine Emergency Medical Services | DX: T81.89XD Other complications of procedures, not elsewhere classified, subsequent encounter (principal); L97.812 Non-pressure chronic ulcer of other part of right lower leg with fat layer exposed; L03.115 Cellulitis of right lower limb; L84 Corns and callosities; R60.0 Localized edema; E66.01 Morbid (severe) obesity due to excess calories; G47.30 Sleep apnea, unspecified; I87.2 Venous insufficiency (chronic) (peripheral); M32.10 Systemic lupus erythematosus, organ or system involvement unspecified; F17.200 Nicotine dependence, unspecified, uncomplicated; Z68.44 Body mass index [BMI] 60.0-69.9, adult; Z96.641 Presence of right artificial hip joint; Z96.652 Presence of left artificial knee joint; Z85.828 Personal history of other malignant neoplasm of skin; Y83.8 Other surgical procedures as the cause of abnormal reaction of the patient, or of later complication, without mention of misadventure at the time of the procedure ==

== ENCOUNTER → 2021-07-22 | Outpatient (CLI) | payer BC, OTHER | LOC: HYPER 08:26 | PROVIDERS: ATTEND Emergency Medicine | DX: T81.89XD Other complications of procedures, not elsewhere classified, subsequent encounter (principal); L97.812 Non-pressure chronic ulcer of other part of right lower leg with fat layer exposed; L03.115 Cellulitis of right lower limb; L84 Corns and callosities; R60.0 Localized edema; E66.01 Morbid (severe) obesity due to excess calories; G47.30 Sleep apnea, unspecified; I87.2 Venous insufficiency (chronic) (peripheral); M32.10 Systemic lupus erythematosus, organ or system involvement unspecified; F17.200 Nicotine dependence, unspecified, uncomplicated; Z68.44 Body mass index [BMI] 60.0-69.9, adult; Z96.641 Presence of right artificial hip joint; Z96.652 Presence of left artificial knee joint; Z85.828 Personal history of other malignant neoplasm of skin; Y83.8 Other surgical procedures as the cause of abnormal reaction of the patient, or of later complication, without mention of misadventure at the time of the procedure ==

== ENCOUNTER → 2021-11-12 | Outpatient (CLI) | payer BC, OTHER | LOC: BC 11:06 | PROVIDERS: ATTEND Family Medicine | DX: Z12.31 Encounter for screening mammogram for malignant neoplasm of breast (principal) ==